=== PATIENT | female | born 1960 | race Caucasian/White ===

== ENCOUNTER 2019-01-11 09:06 | Emergency (ER) | payer OTHER ==
[2019-01-11 09:11] VITALS: BP 133/69
[2019-01-11] MEDS ORDERED: DEXAMETHASONE SOD PHOS INJ 10 MG/1 ML VIAL IM ONE (09:46)
--- NOTE | 2019-01-11 09:48 | ER Document Report ---
ED Skin Rash/Insect Bite/Abscs - General Chief Complaint: Rash Stated Complaint: RASH Time Seen by Provider: 01/11/19 09:36 Mode of Arrival: Ambulatory Information source: Patient Notes: 58-year-old female presented to ED for poison loreto to arms legs back and face after cleaning weeds from 2 yards. He states the rash started yesterday and today the rash is spread to face and arms. It is alert oriented respirations regular and unlabored speaking in full sentences walks with even steady gait. TRAVEL OUTSIDE OF THE [place] IN LAST 30 DAYS: No - HPI Patient complains to provider of: Skin rash/lesion Onset: Other Onset/Duration: Gradual - Couple days Severity: None Pain Level: Denies Skin Character: Rash Quality of rash: Itchy Identify cause: Yes Other exposure: Poison loreto Exacerbated by: Denies Relieved by: Denies Similar symptoms previously: Yes Recently seen / treated by doctor: Yes - Related Data Allergies/Adverse Reactions: codeine Allergy (Verified 01/11/19 09:07) infliximab [From Remicade] Allergy (Verified 01/11/19 09:07) Past Medical History - General Information source: Patient - Social History Smoking Status: Former Smoker Frequency of alcohol use: Occasional Drug Abuse: None Occupation: Housekeeping Lives with: Family Family History: Reviewed & Not Pertinent Patient has suicidal ideation: No Patient has homicidal ideation: No - Past Medical History Cardiac Medical History: Reports: None Pulmonary Medical History: Reports: None EENT Medical History: Reports: None Neurological Medical History: Reports: None Endocrine Medical History: Reports: None Renal/ Medical History: Reports: None Malignancy Medical History: Reports: None GI Medical History: Reports: Hx Crohn's Disease Musculoskeletal Medical History: Reports Hx Musculoskeletal Trauma Skin Medical History: Reports None Psychiatric Medical History: Reports: None Traumatic Medical History: Reports: None Infectious Medical History: Reports: None Past Surgical History: Reports: Hx Abdominal Surgery - Colon resection, Hx Section - Immunizations Immunizations up to date: Yes Hx Diphtheria, Pertussis, Tetanus Vaccination: Yes Review of Systems - Review of Systems Constitutional: No symptoms reported EENT: No symptoms reported Cardiovascular: No symptoms reported Respiratory: No symptoms reported Gastrointestinal: No symptoms reported Genitourinary: No symptoms reported Female Genitourinary: No symptoms reported Musculoskeletal: No symptoms reported Skin: Rash - Arms legs neck and face Hematologic/Lymphatic: No symptoms reported Neurological/Psychological: No symptoms reported -: Yes All other systems reviewed and negative Physical Exam - Vital signs Vitals: Temp Pulse Resp BP Pulse Ox 98.2 F 79 18 133/69 H 97 01/11/19 09:07 01/11/19 09:07 01/11/19 09:07 01/11/19 09:07 01/11/19 09:07 Interpretation: Normal - General General appearance: Appears well, Alert - HEENT Head: Normocephalic, Atraumatic Eyes: Normal Pupils: PERRL - Respiratory Respiratory status: No respiratory distress Chest status: Nontender Breath sounds: Normal Chest palpation: Normal - Cardiovascular Rhythm: Regular Heart sounds: Normal auscultation Murmur: No - Abdominal Inspection: Normal Distension: No distension Bowel sounds: Normal Tenderness: Nontender Organomegaly: No organomegaly - Back Back: Normal, Nontender - Extremities General upper extremity: Normal inspection, Nontender, Normal color, Normal ROM, Normal temperature General lower extremity: Normal inspection, Nontender, Normal color, Normal ROM, Normal temperature, Normal weight bearing. No: Faiza's sign Forearm: Other - Vesicular rash due to poison loreto Wrist: Other - Vesicular rash due to poison loreto Calf: Other - Vesicular rash due to poison loreto Ankle: Other - Vesicular rash to the ankles and calves due to poison loreto - Neurological Neuro grossly intact: Yes Cognition: Normal Orientation: AAOx4 Tolstoy Coma Scale Eye Opening: Spontaneous Melisa Coma Scale Verbal: Oriented Melisa Coma Scale Motor: Obeys Commands Tolstoy Coma Scale Total: 15 Speech: Normal Motor strength normal: LUE, RUE, LLE, RLE Sensory: Normal - Psychological Associated symptoms: Normal affect, Normal mood - Skin Skin Temperature: Warm Skin Moisture: Dry Skin Color: Normal Location of irregularity: Face, Extremities - Arms legs Character of irregularity: Vesicular - Due to poison loreto Irregularity with: Swelling, Tenderness, Weeping Course - Re-evaluation Re-evalutation: 01/11/19 10:37 And treated with Decadron 10 mg IM. She was given instructions on Benadryl Zyrtec Claritin and either Benadryl or calamine lotion for her skin rash. Patient verbalized understanding and agreement with treatment plan and patient was discharged home. - Vital Signs Vital signs: Temp Pulse Resp BP Pulse Ox 98.2 F 79 18 133/69 H 97 01/11/19 09:07 01/11/19 09:07 01/11/19 09:07 01/11/19 09:07 01/11/19 09:07 Discharge - Discharge Clinical Impression: Poison loreto dermatitis Condition: Stable Disposition: HOME, SELF-CARE Instructions: Family Physicians / Practices Additional Instructions: Poison Loreto Poison loreto and poison oak can cause an itchy rash. This is called contact dermatitis. It's an allergy to an oil in the plant's leaves. The oil can be spread from clothing to skin, from pets to humans, or from one spot on the body to another. Washing thoroughly with soap immediately after exposure can prevent the rash. (Clothing should be washed as well.) If the oil is not removed, an itchy rash develops a few days after the exposure. Blisters may develop. Two to three weeks may be required for healing. Generally, treatment consists of: (1) an immediate thorough washing with soap to remove the oil, (2) application of a cortisone cream, and (3) antihistamines for itching. If the reaction is particularly severe, oral cortisone medicine may be required. If there are oozing areas, these can be soaked in epsom salts or Cait's solution. Call the doctor if the rash worsens despite treatment, or if signs of infection occur such as spreading redness, red streaks, swollen glands, swelling, or fever. Diphenhydramine The use of diphenhydramine (Benadryl) has been recommended to control asad rgic symptoms. The 25 mg strength is available over- the-counter, as well as the elixir. This antihistamine is used for many symptoms. It's useful for itching, watering eyes and nose, allergic swelling, hives, and insect stings. The medication can be repeated four times daily. Age Elixir (12.5 mg/tsp) 25 mg pill 1 yr 1/4 tsp 2-3 yr 1/2 tsp 4-8 yr 1 tsp 9-14 yr 2 tsp one tab adult 1-2 tabs Antihistamines may cause drowsiness, especially with the first dose. Do not operate machinery or drive while under the effects of the medication. Do not combine the medication with alcohol, or with any other medication without talking to your doctor. STEROID MEDICATION: You have been given an injection of medicine of the cortisone/steroid class. This medication is used to control inflammation or allergy. It is often continued as a pill for a short period of time, until the acute process subsides. There are usually no side effects from short-term use of cortisone-like medications. Some persons feel an increased sense of well-being and are not sleepy at bedtime. Long-term use of cortisone medications is best avoided, unless required for a severe condition. If your condition does not remit, or relapses after the course of corticosteroid medication, you should consult your physician. FOLLOW-UP CARE: If you have been referred to a physician for follow-up care, call the physicians office for an appointment as you were instructed or within the next two days. If you experience worsening or a significant change in your symptoms, notify the physician immediately or return to the Emergency Department at any time for re-evaluation. Forms: Return to Work
== END 2019-01-11 10:06 | disposition home or self-care (01) ==
LOC: ER 09:06
DX: L23.7 Allergic contact dermatitis due to plants, except food (principal); Z87.891 Personal history of nicotine dependence; Z88.5 Allergy status to narcotic agent; Z88.8 Allergy status to other drugs, medicaments and biological substances
CPT/HCPCS: 99282; J1100